=== PATIENT | male | born 1960 | race Caucasian/White ===

== ENCOUNTER → 2020-10-28 16:39 | Outpatient (CLI) | payer MEDICARE, SELFPAY ==
[2020-10-28 17:41] LABS: Basophils # 0.1 K/mm3 (0-0.2); Basophils % 1.2 % (0.1-2.0); Eosinophils # 0.2 K/mm3 (0.0-0.4); Hematocrit 43.5 % (42.0-52.0); Hemoglobin 14.8 g/dL (14.1-18.0); Lymphocytes # 2.2 K/mm3 (0.7-4.5); Lymphocytes % 28.4 % (10-50); Mean Corpuscular Hemoglobin 32.8 pg (27.0-31.2); Mean Corpuscular Volume 96.6 fl (80-94); Mean Platelet Volume 8.5 fl (7.4-10.4); Monocytes # 0.7 K/mm3 (0.1-1.0); Monocytes % 9.3 % (1.7-9.3); Neutrophils # 4.5 K/mm3 (1.8-7.8); Neutrophils % 59.1 % (37.0-80.0); Platelet Count 224 K/mm3 (142-424); Red Cell Distribution Width 13.2 % (11.5-17.5); White Blood Count 7.6 K/mm3 (4.8-10.8)
[2020-10-28 18:09] LABS: Alanine Aminotransferase 37 U/L (12-78); Albumin Level 4.5 g/dl (3.5-5.0); Albumin/Globulin Ratio 1.2 (1.1-1.8); Alkaline Phosphatase 112 U/L (38-126); Anion Gap 11.3 mEq/L (5-15); Aspartate Amino Transferase 35 U/L (17-59); Bilirubin,Total 0.6 mg/dl (0.2-1.3); Blood Urea Nitrogen 22 mg/dl (9-20); Calcium 9.5 mg/dl (8.4-10.2); Carbon Dioxide 31 mmol/L (22.0-30.0); Chloride 100 mmol/L (98-107); Estimated Glomerular Filt Rate 76 ml/min (>60); GFR (African American) 93 ML/MIN (>60); Globulin 3.7 g/dL (1.3-3.2); Glucose 100 mg/dl (74-100); Potassium 4.3 mmoL/L (3.5-5.1); Sodium 138 mmol/L (136-145); Total Protein,Serum 8.2 g/dl (6.3-8.2)
[2020-10-28 18:39] LABS: Thyroid Stimulating Hormone 1.07 uIU/mL (0.465-4.68)
[2020-10-28 19:14] LABS: Vitamin B12 434 pg/mL (239-931)
[2020-10-28 19:19] LABS: Folate 8.61 ng/mL
== END ==
PROVIDERS: Visit Provider Podiatrist
DX: R09.89 Other specified symptoms and signs involving the circulatory and respiratory systems (principal); M79.2 Neuralgia and neuritis, unspecified; M79.609 Pain in unspecified limb; R20.2 Paresthesia of skin
CPT/HCPCS: 80053; 82607; 82746; 84443; 85025

== ENCOUNTER → 2020-11-19 14:39 | Outpatient (CLI) | payer OTHER, SELFPAY ==
[2020-12-14 17:02] LABS: Miscellaneous Test NORMAL
== END ==
PROVIDERS: Visit Provider Specialist
DX: M79.605 Pain in left leg (principal); R20.0 Anesthesia of skin; Z82.0 Family history of epilepsy and other diseases of the nervous system
CPT/HCPCS: 36415